=== PATIENT | male | born 1940 | race African-American/Black ===

== ENCOUNTER 2017-06-16 08:45 | Inpatient (IN) | payer OTHER, MEDICAID ==
[~2017-06-16] VITALS: Ht 363.2 cm; Wt 92.9 kg
[2017-06-16] MEDS ORDERED: SODIUM CHLORIDE 0.9% 1,000 ML IV ONE (09:27)
[2017-06-16 09:53] LABS: Basophils # (auto) 0 uL; Basophils % (auto) 0.1 % (0.0-2.0); Eosinophils # (auto) 0 uL; Eosinophils % (auto) 0.2 % (0.0-7.0); Hemoglobin 17.4 g/dL (13.5-17.5); Lymphocytes # (auto) 0.6 uL; Lymphocytes % (auto) 9.8 % (10.0-50.0); Mean Corpuscular Hemoglobin 31.2 pg (28.0-32.0); Mean Corpuscular Hgb Conc. 33.5 g/dL (32.0-36.0); Monocytes # (auto) 0.5 uL; Monocytes % (auto) 8.1 % (0.0-12.0); Neutrophils # (auto) 5.4 uL; Neutrophils % (auto) 81.8 % (37.0-80.0); Nucleated Red Blood Cells % 0.1 %; Platelet Count (auto) 178 10^3/uL (140-450); Red Blood Cells 5.59 10^6/uL (4.5-5.90); Red Cell Distribution Width 14.7 % (11.8-14.3); White Blood Cell 6.6 10^3/uL (4.4-10.8)
[2017-06-16 10:00] LABS: Albumin 3.6 g/dL (3.4-5.0); BUN/Creatinine Ratio 9.9; Bilirubin, Total 0.8 mg/dL (0.2-1.0); Magnesium 2.6 mg/dL (1.6-2.6); Potassium 3.9 mmol/L (3.5-5.1); Total Protein 8.8 g/dL (6.4-8.2)
[2017-06-16 11:24] LABS: Urine Bacteria NONE SEEN /hpf (None Seen); Urine Blood 1+ /uL (Negative); Urine Hyaline Cast MOD /lpf (0 - 2); Urine Mucus FEW (None Seen); Urine WBC 3 /hpf (0 - 3)
[2017-06-16] MEDS ORDERED: PROCHLORPERAZINE EDISYLATE 5 MG/ML 2ML VIAL ONE (12:32)
[2017-06-16 12:40] LABS: INR 1.07 (0.9-1.15); Partial Thromboplastin Time 27.9 sec (22.64-33.71); Prothrombin Time 11.7 sec (9.37-12.3)
[2017-06-16] MEDS ORDERED: BENZOCAINE (DENTAL) 20 % SPRAY 60ML MT ONE (13:30)
[2017-06-16] MEDS: SODIUM CHLORIDE 0.9% 1,000 ML IV SCH ×2 (13:59→23:53)
[2017-06-16] MEDS ORDERED: LORazepam 2MG/ML-1ML VIAL IV PRN (14:00)
[2017-06-16] MEDS ORDERED: MORPHINE SULFATE 4 MG/ML SYR/VIAL IV PRN ×3 (14:00)
[2017-06-16] MEDS ORDERED: ALBUTEROL SULF 2.5 MG/0.5ML(0.5%) NEB SOLN NEB PRN (14:00)
[2017-06-16] MEDS ORDERED: cefTRIAXone 1GM/10ml IVPUSH 10 ML IV ONE (14:00)
[2017-06-16] MEDS ORDERED: NITROGLYCERIN 0.4 MG SL TAB SL PRN (14:00)
[2017-06-16] MEDS ORDERED: PROMETHAZINE HCL 25 MG/ML 1ML IV PRN (14:00)
[2017-06-16 15:02] VITALS: BP 150/95
[2017-06-16 15:20] VITALS: BP 144/79
[2017-06-16 17:00] VITALS: BP 154/86
[2017-06-16] MEDS: metroNIDAZOLE 500MG/100ML 100 ML IV SCH ×2 (18:25→23:53)
[2017-06-16 20:00] VITALS: BP 145/72
[2017-06-16 22:00] VITALS: BP 145/72
[2017-06-17] MEDS ORDERED: FENO160T8 PO (02:03)
[2017-06-17] MEDS ORDERED: ASPI81TA27 PO (02:03)
[2017-06-17] MEDS ORDERED: FERR-20 PO (02:03)
[2017-06-17] MEDS ORDERED: IBUP800T24 PO (02:03)
[2017-06-17] MEDS ORDERED: LACT1CAP5 PO (02:03)
[2017-06-17 05:00] VITALS: BP 127/75
[2017-06-17 05:38] LABS: Basophils # (auto) 0 uL; Basophils % (auto) 0.1 % (0.0-2.0); Eosinophils # (auto) 0 uL; Eosinophils % (auto) 0.6 % (0.0-7.0); Hematocrit 48.9 % (41.0-53.0); Lymphocytes # (auto) 1.1 uL; Lymphocytes % (auto) 20.8 % (10.0-50.0); Mean Corpuscular Hemoglobin 30.9 pg (28.0-32.0); Mean Corpuscular Hgb Conc. 32.7 g/dL (32.0-36.0); Mean Corpuscular Volume 94.4 fL (80.0-100.0); Monocytes # (auto) 0.6 uL; Monocytes % (auto) 11.6 % (0.0-12.0); Neutrophils # (auto) 3.6 uL; Neutrophils % (auto) 66.9 % (37.0-80.0); Nucleated Red Blood Cells % 0.1 %; Platelet Count (auto) 170 10^3/uL (140-450); Red Blood Cells 5.18 10^6/uL (4.5-5.90); Red Cell Distribution Width 14.8 % (11.8-14.3); White Blood Cell 5.4 10^3/uL (4.4-10.8)
[2017-06-17] MEDS: metroNIDAZOLE 500MG/100ML 100 ML IV SCH ×3 (06:09→19:02)
[2017-06-17 06:16] LABS: BUN/Creatinine Ratio 13.7; Bilirubin, Total 0.6 mg/dL (0.2-1.0); Calcium 8.2 mg/dL (8.5-10.1); Potassium 3.7 mmol/L (3.5-5.1); Total Protein 7.5 g/dL (6.4-8.2)
[2017-06-17 09:00] VITALS: BP 145/73
[2017-06-17] MEDS ORDERED: cefTRIAXone 1GM/10ml IVPUSH 10 ML IV SCH (09:00)
[2017-06-17] MEDS: SODIUM CHLORIDE 0.9% 1,000 ML IV SCH (10:02)
[2017-06-17 13:00] VITALS: BP 148/77
[2017-06-17 17:00] VITALS: BP 146/74
[2017-06-17 22:06] VITALS: BP 148/85
[2017-06-18] MEDS ORDERED: IBUPROFEN 400 MG TAB PO PRN
[2017-06-18] MEDS: metroNIDAZOLE 500MG/100ML 100 ML IV SCH ×2 (00:25→07:53)
[2017-06-18 05:00] VITALS: BP 150/81
[2017-06-18 09:00] VITALS: BP 154/63
[2017-06-18 13:01] VITALS: BP 132/105
[2017-06-18 17:00] VITALS: BP 161/82
== END 2017-06-18 18:10 | disposition home or self-care (01) | DRG 389 ==
LOC: ER 08:45 → TELE 08:46 → TELE-WESTW 15:18 → WEST WING 06-17 16:06
PROVIDERS: ADMIT Internal Medicine; ATTEND Internal Medicine
DX: K56.600 Partial intestinal obstruction, unspecified as to cause (principal); K55.9 Vascular disorder of intestine, unspecified; R31.29 Other microscopic hematuria; K57.90 Diverticulosis of intestine, part unspecified, without perforation or abscess without bleeding; J43.9 Emphysema, unspecified; E66.9 Obesity, unspecified; Z87.891 Personal history of nicotine dependence; Z86.73 Personal history of transient ischemic attack (TIA), and cerebral infarction without residual deficits; Z80.8 Family history of malignant neoplasm of other organs or systems
CPT/HCPCS: 36415; 71045; 74176; 74250; 80053; 81001; 82150; 83690; 83735; 84443; 85025; 85610; 85730; 96361; 96374; J3490